=== PATIENT | female | born 1960 | race Caucasian/White ===

== ENCOUNTER 2023-12-28 09:25 | Emergency (ER) | payer MEDICARE, SELFPAY ==
[2023-12-28 09:27] VITALS: BP 116/66
[2023-12-28 09:30] VITALS: BP 116/66
--- NOTE | 2023-12-28 09:34 | ED.GENMED ---
History of Present Illness
<Indira Kirkland PA-C - Last Filed: 12/28/23 19:13>
General
Chief Complaint: Dizziness
Source: patient
Exam Limitations: none
Time Seen by Provider: 12/28/23 09:31
Nursing documentation reviewed up to this point in time: agreed with
History of Present Illness
History of Present Illness:
63-year-old female with a past medical history of hypothyroidism, non-hodgkin's lymphoma w/ bowel resection in 2016 presenting emergency department today with concerns of sudden onset of vertigo. Patient reports that shortly after waking this
morning, she started to have a sensation of the room spinning started to have a lot of nausea. Patient reports that she felt like she would pass out this moment, she went to go sit down but her symptoms persisted. Patient reports that she is able
to walk without difficulty. Patient has no headache, has no vision loss. Patient has no chest pain, no shortness of breath. Patient states that she has been in remission for non-Hodgkin's lymphoma for many years. Patient has no prior history of
cardiac disease, no hypertension or hyperlipidemia. Patient states that she had an episode of like this once or twice many years ago and these resolved on its own without medication treatment. Patient denies any history of recent chiropractic
manipulation to the neck, denies any neck pain, denies any flexion-extension injury, denies any whiplash injury.
Past History
<Indira Kirkland PA-C - Last Filed: 12/28/23 19:13>
Past History
ED Past Medical History: Other (nonhodgkins lymphoma)
ED Past Surgical History: Bowel resection
Social History
Tobacco: Non-smoker
Personal:
Living: with family
Family History
Family History: Other (no significant)
Review of Systems
<SHERIDAN Trujillo Last Filed: 12/28/23 19:13>
Review of Systems
All Other Systems: ROS reviewed and negative except as documented in HPI and ROS
Phy Exam
<Indira Kirkland PA-C - Last Filed: 12/28/23 19:13>
Physical Exam
Physical Exam:
General: Patient is well appearing and in no acute distress; non-toxic
Skin: Warm and dry, no rashes or lesions
Head: Normocephalic, atraumatic
Eyes: Sclera non-icteric. EOMs intact. No nystagmus. Peripheral visual field testing intact.
Cardiac: Regular rate and rhythm, no murmurs
Pulm: Normal respiratory effort
Musculoskeletal: 5/5 strength in bilateral upper and lower extremities.
Neuro: CN II-XII intact, no focal neurologic deficits. Sensation intact to light touch bilaterally. Normal finger-nose, ogsh-bs-held testing. Normal gait, no ataxia.
Psychiatric: Appropriate mood and affect.
Course
<Indira Kirkland PA-C - Last Filed: 12/28/23 19:13>
Orders/Labs/Results
Orders:
Orders
12/28/23 09:52
Electrocardiogram (*1) Urgent
Reason for Study: Vertigo / Dizzy
12/28/23 09:53
EKG- Treatment ONCE
12/28/23 10:03
Lorazepam [Ativan] 0.5 mg IV NOW STA
Ondansetron Injectable [Zofran] 4 mg IV NOW STA
12/28/23 10:09
0.9% Sodium Chloride 500 ml [Nss] 500 ml IV BOLUS
12/28/23 10:10
Pt Eval And Treat Urgent
Activity Level: As Tolerated
12/28/23 10:25
Complete Blood Count/With Diff Urgent
Comprehensive Metabolic Panel Urgent
12/28/23 12:35
Dexamethasone Sod Phosphate [Decadron] 10 mg IV NOW STA
Abnormal Lab Results
12/28/23
10:25
BUN 22 H mg/dl
(7-17)
Glucose 124 H mg/dl
(70-99)
12/28/23 10:25
12/28/23 10:25
Vital Signs
Initial and Last Documented VS:
Initial Vital Signs
Temp Pulse Resp BP Pulse Ox
97.9 F 54 16 116/66 99
12/28/23 09:27 12/28/23 09:27 12/28/23 09:27 12/28/23 09:27 12/28/23 09:27
Last Documented Vital Signs
Temp Pulse Resp BP Pulse Ox
97.9 F 56 14 108/51 98
12/28/23 09:27 12/28/23 11:30 12/28/23 11:30 12/28/23 11:00 12/28/23 11:30
<Leonides Chatman DO - Last Filed: 12/28/23 12:42>
Orders/Labs/Results
Orders:
Orders
12/28/23 09:52
Electrocardiogram (*1) Urgent
Reason for Study: Vertigo / Dizzy
12/28/23 09:53
EKG- Treatment ONCE
12/28/23 10:03
Lorazepam [Ativan] 0.5 mg IV NOW STA
Ondansetron Injectable [Zofran] 4 mg IV NOW STA
12/28/23 10:09
0.9% Sodium Chloride 500 ml [Nss] 500 ml IV BOLUS
12/28/23 10:10
Pt Eval And Treat Urgent
Activity Level: As Tolerated
12/28/23 10:25
Complete Blood Count/With Diff Urgent
Comprehensive Metabolic Panel Urgent
12/28/23 12:35
Dexamethasone Sod Phosphate [Decadron] 10 mg IV NOW STA
Abnormal Lab Results
12/28/23
10:25
BUN 22 H mg/dl
(7-17)
Glucose 124 H mg/dl
(70-99)
12/28/23 10:25
12/28/23 10:25
Vital Signs
Initial and Last Documented VS:
Initial Vital Signs
Temp Pulse Resp BP Pulse Ox
97.9 F 54 16 116/66 99
12/28/23 09:27 12/28/23 09:27 12/28/23 09:27 12/28/23 09:27 12/28/23 09:27
Last Documented Vital Signs
Temp Pulse Resp BP Pulse Ox
97.9 F 56 14 108/51 98
12/28/23 09:27 12/28/23 11:30 12/28/23 11:30 12/28/23 11:00 12/28/23 11:30
[place];Indira Kirkland PA-C - Last Filed: 12/28/23 19:13>
MDM/Problems Addressed
Differential Diagnosis Includes:
Differentials include benign positional vertigo, vestibular neuritis, posterior circulation stroke, vertebral artery dissection
MDM/Problems Addressed:
Dizziness:
63-year-old female with a past medical history of hypothyroidism, non-hodgkin's lymphoma w/ bowel resection in 2016 presenting emergency department today with concerns of sudden onset of vertigo. Patient reports that shortly after waking this
morning, she started to have a sensation of the room spinning started to have a lot of nausea. Patient reports that she felt like she would pass out this moment, she went to go sit down but her symptoms persisted.
Patient requesting medication treatment for her symptoms. When nursing came to give her her medications, patient declined and notes that she is improving lying still and wants to wait till physical therapy evaluates her. PT evaluated patient and
appreciated left gaze nystagmus with Frenzel goggles. Of note, patient's symptoms improve when she lays on her left side. On my physical exam, she is well appearing, has no focal neurologic deficits--normal finger to nose, heel to trujillo, intact
cranial nerves, normal gait. CBC and CMP unremarkable, EKG demonstrates sinus bradycardia but patient states that she is very active and has a lower resting heart rate. She is not hypertensive. Considering patient's hx of lymphoma, I did want to
obtain a CT scan of the head. Patient declining CT scan at this time, did discuss return precautions. She is stable for discharge.
Chronic conditions affecting care:
distant lymphoma, hypothyroidism
Acute Exacerbation and/or Progression of Chronic Illness:
n/a
<Indira Kirkland PA-C - Last Filed: 12/28/23 19:13>
*Critical Care Note
Total Time (30-74mins, 75-104mins- exclusive of procedures): Not Applicable
Data Reviewed
Review of Other/Old Records Reveals: Records (reviewed ER physician documentation from 09/25/15) and Discharge Summary (no discharge summaries in [facility] to review )
Source: patient and records
Prescriptions/Medications Considered But Not Given:
n/a
Further Testing Considered But Not Given:
n/a
<Indira Kirkland PA-C - Last Filed: 12/28/23 19:13>
Patient Management
Escalation/DeEscalation of care consider admission/obs:
Admit not indicated, patient stable for discharge
ED Attending Note
<Indira Kirkland PA-C - Last Filed: 12/28/23 19:13>
-
Portions of this chart may have been created with voice recognition software.� Occasional wrong word or��sound alike� substitutions may have occurred due to the inherent limitations of voice recognition software.
<Leonides Chatman DO - Last Filed: 12/28/23 12:42>
ED Attending Note
Patient seen and examined by attending physician: Yes
I performed the substantive portion of visit, reviewed & personally made and approve the management plan that is documented in note by myself or LATOYA.: Yes
ED Attending Note:
Patient is a 63-year-old female who presents to the emergency department complaining of dizziness, nausea. Patient awoke without follows though she has got a pass out and felt terrible. Patient denied headache, speech issues, focal weakness.
Patient denies any history of anything this severe. Patient does have a remote history of lymphoma. Patient denies any recent illnesses or injuries. Physical exam patient does appear to be in mild distress but is doing better at this time.
Patient does not want CAT scan. This seems reasonable. Patient was seen by PT and felt to be vestibular neuritis and starting prednisone. Patient will be given Antivert and Zofran as well as prednisone. Patient appears to be improved. This
appears to be a peripheral vertigo.
Discharge Plan
Departure
Patient Disposition: Home (Routine Discharge)
Date of Disposition: 12/28/23
Time of Disposition: 12:36
Patient with high blood pressure during this ER visit?: No
Condition: Fair
Covid-19: Not Applicable
Discharge Problem:
Peripheral vertigo
Instructions: Vertigo (a Type of Dizziness) (DC), Dizziness
Prescriptions:
New
prednisone 20 mg tablet
20 mg PO BID Qty: 10 0RF
ondansetron 8 mg tablet,disintegrating
8 mg PO TID PRN (Reason: nausea and vomiting) Qty: 30 0RF
meclizine [Antivert] 25 mg Tablet,Chewable
25 mg PO Q8HPRN PRN (Reason: nausea or vertigo) Qty: 30 0RF
No Action
Levothyroxine
88 mcg PO DAILY
Referrals:
Rosalinda Lovell DO [Family Provider] - Follow up in 5-7 days
Interventions
Interventions:
*Risk Screen - Suicide Last Done: 12/28/23 09:27
*General Assessment Last Done: 12/28/23 09:27
*Neglect/Abuse Screening Last Done: 12/28/23 09:27
ED- Fall Risk Assessment Last Done: 12/28/23 12:50
*ED COVID-19 Vaccine History Last Done: 12/28/23 09:27
*Nursing Disposition Last Done: 12/28/23 12:50
ED- Neurological Assessment Last Done: 12/28/23 11:07
ED- Cardiac Assessment Last Done: 12/28/23 12:50
Discharge Date and Time
Discharge Date/Time: 12/28/23 13:03
Print Language: BERMUDIAN
[2023-12-28 10:01] VITALS: BP 111/94
[2023-12-28 11:00] VITALS: BP 108/51
[2023-12-28 11:00] LABS: % Basophils 1.2 % (0-2); % Eosinophils 1.2 % (0-6); % Immature Granulocytes 0.2 % (0-0.5); % Lymphocytes 23.2 % (20.5-51.1); % Monocytes 6.4 % (1.7-9.3); % Neutrophils 67.8 % (42.2-75.2); Absolute Basophils 0.1 10^3/uL (0-0.2); Absolute Eosinophils 0.1 10^3/uL (0-0.7); Absolute Lymphocytes 1.2 10^3/uL (1.2-3.4); Absolute Monocytes 0.3 10^3/uL (0.1-0.6); Absolute Neutrophils 3.5 10^3/uL (1.4-6.5); Hematocrit 38.8 % (37.0-47.0); Hemoglobin 13.2 g/dL (12.0-16.0); Mean Corpuscular Hgb 30.5 pg (27.0-31.0); Mean Corpuscular Volume 89.6 fL (81.0-99.0); Mean Platelet Volume 10.1 fL (7.4-10.4); Nucleated Red Blood Cells % 0 %; Platelet Count 176 10^3/uL (130-400); Red Blood Cell Count 4.33 10^6/uL (4.20-5.40); Red Cell Dist. Width 12.3 % (11.5-14.5); White Blood Cell Count 5.2 10^3/uL (4.8-10.8)
[2023-12-28 11:08] LABS: ALT (SGPT) 18 U/L (0-35); AST (SGOT) 28 U/L (14-36); Albumin 4.2 g/dl (3.5-5.0); Alkaline Phosphatase 86 U/L (38-126); Blood Urea Nitrogen 22 mg/dl (7-17); Calcium 9.2 mg/dl (8.4-10.2); Carbon Dioxide 23 mmol/L (22-30); Chloride 107 mmol/L (98-107); Estimated Creatinine Clearance 55 ml/min; Glucose 124 mg/dl (70-99); Potassium 4.4 mmol/L (3.5-5.1); Sodium 139 mmol/L (135-145); Total Bilirubin 0.6 mg/dl (0.2-1.3); Total Protein 6.6 g/dl (6.3-8.2); eGFR > 60.00
[2023-12-28 12:08] VITALS: BP 110/70; PULSE 51; O2SAT 96
== END 2023-12-28 13:03 | disposition home or self-care (01) ==
LOC: EMR 09:25
PROVIDERS: Physician Assistant; EMERGENCY PHYSICIAN Emergency Medicine; FAMILY PHYSICIAN Family Medicine
DX: H81.399 Other peripheral vertigo, unspecified ear (principal); Z85.72 Personal history of non-Hodgkin lymphomas; E03.9 Hypothyroidism, unspecified
CPT/HCPCS: 99284; 80053; 85025; 93005

== ENCOUNTER → 2024-01-24 13:10 | Outpatient (REF) | payer MEDICARE, SELFPAY | LOC: WDC 13:10 | PROVIDERS: ATTENDING PHYSICIAN Obstetrics & Gynecology Gynecology; FAMILY PHYSICIAN Family Medicine | DX: Z12.31 Encounter for screening mammogram for malignant neoplasm of breast (principal); N95.9 Unspecified menopausal and perimenopausal disorder | CPT/HCPCS: 77063; 77067; 77080 ==

== ENCOUNTER → 2024-03-19 10:54 | Outpatient (REF) | payer MEDICARE, SELFPAY | LOC: WDC 10:54 | PROVIDERS: ATTENDING PHYSICIAN Obstetrics & Gynecology Gynecology; FAMILY PHYSICIAN Family Medicine | DX: R92.2 Inconclusive mammogram (principal) | CPT/HCPCS: 76641 ==

== ENCOUNTER → 2025-01-01 13:25 | Outpatient (REF) | payer MEDICARE, OTHER, SELFPAY | LOC: WDC 13:25 | PROVIDERS: ATTENDING PHYSICIAN Obstetrics & Gynecology Gynecology; FAMILY PHYSICIAN Family Medicine | DX: Z12.31 Encounter for screening mammogram for malignant neoplasm of breast (principal); Z80.3 Family history of malignant neoplasm of breast | CPT/HCPCS: 77063; 77067 ==